=== PATIENT | female | born 1960 | race Caucasian/White ===

== ENCOUNTER 2017-08-18 20:04 | Emergency (ER) | payer MEDICAID ==
[~2017-08-18] VITALS: Ht 160 cm; Wt 76.7 kg
[2017-08-18 20:04] VITALS: BP_SYST 146
--- NOTE | 2017-08-18 20:04 | NUR ---
Patient to ER bed 05 to gown for evaluation. Side rails up. Report given to CORI Johnson
--- NOTE | 2017-08-18 20:06 | NUR ---
Patient AAOx4, ambulatory. Patient states having abdominal pain to LLQ with pain scale 8/10. Patient states having abdominal pain for "several months" but states pain worsened "a few days ago". Patient states pain radiates across lower abdomen to RLQ. Patient states having nausea but denies vomiting and diarrhea. Patient denies any other complaints.
--- NOTE | 2017-08-18 20:19 | NUR ---
EMILY Fall at bedside examining patient.
--- NOTE | 2017-08-18 20:29 | NUR ---
# 22 gauge angiocath placed to right forearm. Use of asceptic technique. Opsite placed over site. Blood return noted. Blood for lab drawn from site. Flushed with 10 cc of normal saline. No evidence of infiltration noted. Patient tolerated well.
[2017-08-18] MEDS ORDERED: NACL 0.9% 1,000 ML IV ONE (20:30)
[2017-08-18] MEDS ORDERED: MORPHINE 4 MG/ML INJ. SYRINGE IVP ONE ×2 (20:30→21:30)
[2017-08-18 20:53] LABS: BASOPHILS # (AUTO) 0.1 K/uL (0.0-0.2); BASOPHILS % (AUTO) 1.8 % (0.0-2.0); EOSINOPHILS # (AUTO) 0.1 K/uL (0.0-0.4); EOSINOPHILS % (AUTO) 2.1 % (0.0-4.0); HEMATOCRIT 37.4 % (36-48); HEMOGLOBIN 12.2 g/dL (12.0-16.0); LYMPHOCYTES # (AUTO) 2.4 K/uL (1.0-5.5); LYMPHOCYTES % (AUTO) 44.2 % (20.5-51.5); MEAN CORPUSCULAR HEMOGLOBIN 27 pg (27-31); MEAN CORPUSCULAR HGB CONC 33 % (32-36); MEAN CORPUSCULAR VOLUME 82 fL (79.0-98.0); MONOCYTES # (AUTO) 0.4 K/uL (0.0-1.0); MONOCYTES % (AUTO) 7.3 % (1.7-9.3); NEUTROPHILS # (AUTO) 2.4 K/uL (1.8-7.7); NEUTROPHILS % (AUTO) 44.6 % (40.0-70.0); PLATELET COUNT (AUTO) 235 K/uL (130-430); RED BLOOD CELL COUNT(AUTO) 4.57 MIL/uL (4.2-6.2); RED CELL DISTRIBUTION WIDTH 13.4 % (9.0-15.0); WHITE BLOOD COUNT (AUTO) 5.4 K/uL (4.8-10.8)
[2017-08-18 21:02] LABS: BILIRUBIN,URINE NEGATIVE (NEGATIVE); BLOOD, URINE NEGATIVE (NEGATIVE); CLARITY/URINE CLEAR (CLEAR); COLOR,URINE YELLOW (YELLOW); GLUCOSE,URINE 1+ (NEGATIVE); KETONES,URINE NEGATIVE (NEGATIVE); LEUKOCYTE ESTERASE ,URINE TRACE (NEGATIVE); NITRITE, URINE NEGATIVE (NEGATIVE); PROTEIN URINE NEGATIVE (NEGATIVE); UROBILINOGEN,URINE 0.2 (0.2-1.0)
[2017-08-18 21:06] LABS: BACTERIA,URINE MODERATE /HPF (None Seen); RBC,URINE 0-3 /HPF (0-3)
[2017-08-18 21:09] LABS: POTASSIUM 4.3 mmol/L (3.5-5.1)
[2017-08-18 21:10] LABS: CREATININE 0.98 mg/dL (0.55-1.30); TOTAL BILIRUBIN 0.3 mg/dL (0.0-1.0)
[2017-08-18 21:11] LABS: ALBUMIN 3.7 g/dL (3.4-4.8)
[2017-08-18] MEDS ORDERED: cefTRIAXone 1 GM IVPB PREMIX 50 ML IV ONE (21:30)
--- NOTE | 2017-08-18 22:04 | NUR ---
Patient is calmly resting in ER bed, no signs of distress noted. Vital signs are within therapeutic range.
[2017-08-18] MEDS ORDERED: LACTULOSE 20 GM/30 ML UDC PO ONE (22:15)
[2017-08-18 22:45] VITALS: BP_SYST 142
--- NOTE | 2017-08-18 22:45 | NUR ---
Patient given written and verbal discharge instructions and verbalizes understanding. ER MD discussed with patient the results and treatment provided. Patient in stable condition. ID arm band removed. IV catheter removed intact and dressing applied, no active bleeding. Rx of macrobid and lactulose given. Patient educated on pain management and to follow up with PMD. Pain Scale 0/10. Opportunity for questions provided and answered. Medication side effect fact sheet provided.
== END 2017-08-18 22:45 | disposition home or self-care (01) ==
LOC: SED 20:04
DX: K59.00 Constipation, unspecified (principal); N39.0 Urinary tract infection, site not specified; M79.7 Fibromyalgia; E11.9 Type 2 diabetes mellitus without complications; I10 Essential (primary) hypertension; Z88.1 Allergy status to other antibiotic agents; Z90.49 Acquired absence of other specified parts of digestive tract; Z90.710 Acquired absence of both cervix and uterus
CPT/HCPCS: 36415; 74176; 80053; 81000; 83605; 85025; 87040; 87086; 96365; 96375; 96376; 99285; J0696; J2270; J7030

== ENCOUNTER 2017-08-21 15:56 | Inpatient (IN) | payer MEDICAID ==
[~2017-08-21] VITALS: Ht 157.5 cm; Wt 75.7 kg
[2017-08-21 16:26] VITALS: BP_SYST 107
[2017-08-21] MEDS ORDERED: KETOROLAC TROMETHAMINE 15 MG VIAL IVP ONE (17:00)
[2017-08-21 17:45] LABS: BASOPHILS # (AUTO) 0.1 K/uL (0.0-0.2); BASOPHILS % (AUTO) 1.8 % (0.0-2.0); EOSINOPHILS # (AUTO) 0.1 K/uL (0.0-0.4); EOSINOPHILS % (AUTO) 0.9 % (0.0-4.0); HEMATOCRIT 39.3 % (36-48); HEMOGLOBIN 12.6 g/dL (12.0-16.0); LYMPHOCYTES # (AUTO) 2.1 K/uL (1.0-5.5); MEAN CORPUSCULAR HEMOGLOBIN 26 pg (27-31); MEAN CORPUSCULAR HGB CONC 32 % (32-36); MEAN CORPUSCULAR VOLUME 82 fL (79.0-98.0); MONOCYTES # (AUTO) 0.4 K/uL (0.0-1.0); MONOCYTES % (AUTO) 6.2 % (1.7-9.3); NEUTROPHILS % (AUTO) 55.1 % (40.0-70.0); PLATELET COUNT (AUTO) 205 K/uL (130-430); RED CELL DISTRIBUTION WIDTH 13.6 % (9.0-15.0); WHITE BLOOD COUNT (AUTO) 5.7 K/uL (4.8-10.8)
[2017-08-21 17:56] LABS: ALBUMIN 3.7 g/dL (3.4-4.8); CALCIUM 9.3 mg/dL (8.4-11.0); CREATININE 1.25 mg/dL (0.55-1.30)
[2017-08-21 18:16] LABS: POTASSIUM 4.1 mmol/L (3.5-5.1)
[2017-08-21 18:18] LABS: BILIRUBIN,URINE NEGATIVE (NEGATIVE); BLOOD, URINE NEGATIVE (NEGATIVE); CLARITY/URINE HAZY (CLEAR); COLOR,URINE YELLOW (YELLOW); GLUCOSE,URINE NEGATIVE (NEGATIVE); KETONES,URINE 1+ (NEGATIVE); LEUKOCYTE ESTERASE ,URINE NEGATIVE (NEGATIVE); NITRITE, URINE NEGATIVE (NEGATIVE); PROTEIN URINE NEGATIVE (NEGATIVE); UROBILINOGEN,URINE 0.2 (0.2-1.0)
[2017-08-21 18:21] LABS: PROTHROMBIN TIME 9.9 SECS (9.5-12.5)
[2017-08-21 18:28] LABS: TOTAL BILIRUBIN 0.5 mg/dL (0.0-1.0)
[2017-08-21] MEDS ORDERED: fentaNYL CITRATE/PF 100 MCG/2 ML AMP IVP ONE (18:30)
[2017-08-21 18:41] LABS: BACTERIA,URINE MODERATE /HPF (None Seen); RBC,URINE 0-3 /HPF (0-3)
[2017-08-21 18:42] LABS: MUCUS,URINE 1+ /LPF (None Seen); OTHER CASTS, URINE WBC CASTS 1+ /LPF (None Seen)
[2017-08-21] MEDS ORDERED: PIPERACILLIN/TAZO 3.375 GM in NS 50 ML IV ONE (18:45)
[2017-08-21] MEDS ORDERED: MORPHINE 2 MG/ML INJ. SYRINGE IVP PRN (19:00)
[2017-08-21] MEDS ORDERED: METOCLOPRAMIDE HCL 10 MG/2 ML VIAL IVP PRN (19:00)
[2017-08-21] MEDS ORDERED: MORPHINE 4 MG/ML INJ. SYRINGE IVP PRN (19:00)
[2017-08-21] MEDS ORDERED: ACETAMINOPHEN 325 MG TABLET PO PRN (19:00)
[2017-08-21] MEDS ORDERED: NACL 0.9% 1,000 ML IV ONE (19:00)
[2017-08-21] MEDS ORDERED: METF1000 PO (19:03)
[2017-08-21] MEDS ORDERED: LIP40 PO (19:03)
[2017-08-21] MEDS ORDERED: MILN50TA PO (19:03)
[2017-08-21] MEDS ORDERED: LYR25 PO (19:03)
[2017-08-21] MEDS ORDERED: AMLO5TAB4 PO (19:03)
[2017-08-21] MEDS ORDERED: LINA5TAB2 PO (19:03)
[2017-08-21] MEDS ORDERED: PRO40 PO (19:03)
[2017-08-21] MEDS ORDERED: TRAZ-126 PO (19:03)
[2017-08-21] MEDS ORDERED: GLIP-195 PO (19:03)
[2017-08-21] MEDS ORDERED: METO50TA7 PO (19:03)
[2017-08-21] MEDS ORDERED: ESTR0.3T3 PO (19:03)
[2017-08-21] MEDS ORDERED: PIPERACILLIN/TAZOBACTAM 3.375 GM/VIAL (ZOSYN) IV ONE (19:11)
[2017-08-21 19:43] VITALS: BP_SYST 147
[2017-08-21] MEDS: ONDANSETRON HCL 4 MG/2 ML VIAL IVP PRN (20:06)
[2017-08-21] MEDS: D5NS 1,000 ML IV SCH (20:14)
[2017-08-21] MEDS: PIPERACILLIN/TAZO 3.375/DEX-IS 50 ML IV SCH (23:13)
[2017-08-22 00:15] VITALS: BP_SYST 121
[2017-08-22] MEDS: fentaNYL CITRATE/PF 100 MCG/2 ML AMP IVP PRN ×4 (00:57→15:33)
[2017-08-22] MEDS: D5NS 1,000 ML IV SCH ×2 (06:13→17:29)
[2017-08-22] MEDS: PIPERACILLIN/TAZO 3.375/DEX-IS 50 ML IV SCH ×3 (06:15→17:30)
[2017-08-22 08:11] VITALS: BP_SYST 109
[2017-08-22] MEDS ORDERED: DEXTROSE 50% JECT 50 ML DISP.SYRIN IVP PRN (10:30)
[2017-08-22] MEDS: INSULIN REGULAR, HUMAN 100 UNITS/ML, 10 ML VIAL (novoLIN R) SUBCUT PRN ×2 (12:09→18:05)
[2017-08-22 12:55] VITALS: BP_SYST 142
[2017-08-22 16:04] VITALS: BP_SYST 136
[2017-08-22 19:50] VITALS: BP_SYST 150
[2017-08-22] MEDS: PREGABALIN 25 MG CAPSULE (LYRICA) PO SCH (21:16)
[2017-08-22] MEDS: HYDROmorphone 2 MG/ML VIAL IVP PRN (21:16)
[2017-08-23] MEDS: PIPERACILLIN/TAZO 3.375/DEX-IS 50 ML IV SCH ×5 (00:02→23:08)
[2017-08-23 00:06] VITALS: BP_SYST 110
[2017-08-23] MEDS: INSULIN REGULAR, HUMAN 100 UNITS/ML, 10 ML VIAL (novoLIN R) SUBCUT PRN ×5 (00:08→23:16)
[2017-08-23] MEDS: DIPHENHYDRAMINE INJ 50 MG/ML VIAL IVP PRN ×3 (01:10→17:11)
[2017-08-23] MEDS: HYDROmorphone 2 MG/ML VIAL IVP PRN ×4 (01:13→23:08)
[2017-08-23] MEDS: D5NS 1,000 ML IV SCH ×3 (01:14→21:15)
[2017-08-23] MEDS: PREGABALIN 25 MG CAPSULE (LYRICA) PO SCH (09:10)
[2017-08-23 09:12] VITALS: BP_SYST 123
[2017-08-23] MEDS ORDERED: DIATR MEGLU/DIATRIZ SOD 30 ML SOLUTION PO ONE (09:20)
[2017-08-23 09:38] LABS: BASOPHILS # (AUTO) 0.1 K/uL (0.0-0.2); BASOPHILS % (AUTO) 1.3 % (0.0-2.0); EOSINOPHILS # (AUTO) 0.1 K/uL (0.0-0.4); HEMATOCRIT 34.6 % (36-48); HEMOGLOBIN 11.5 g/dL (12.0-16.0); LYMPHOCYTES # (AUTO) 1.9 K/uL (1.0-5.5); LYMPHOCYTES % (AUTO) 39.5 % (20.5-51.5); MEAN CORPUSCULAR HEMOGLOBIN 27 pg (27-31); MEAN CORPUSCULAR HGB CONC 33 % (32-36); MEAN CORPUSCULAR VOLUME 81 fL (79.0-98.0); MONOCYTES # (AUTO) 0.4 K/uL (0.0-1.0); MONOCYTES % (AUTO) 8.1 % (1.7-9.3); NEUTROPHILS # (AUTO) 2.4 K/uL (1.8-7.7); NEUTROPHILS % (AUTO) 49.1 % (40.0-70.0); PLATELET COUNT (AUTO) 193 K/uL (130-430); RED BLOOD CELL COUNT(AUTO) 4.27 MIL/uL (4.2-6.2); RED CELL DISTRIBUTION WIDTH 13.5 % (9.0-15.0); WHITE BLOOD COUNT (AUTO) 4.9 K/uL (4.8-10.8)
[2017-08-23] MEDS ORDERED: HYDROmorphone 1 MG INJ. 1 MG/ML AMPUL IVP PRN (10:45)
[2017-08-23 10:46] LABS: CALCIUM 8.3 mg/dL (8.4-11.0); CREATININE 0.84 mg/dL (0.55-1.30); POTASSIUM 4.4 mmol/L (3.5-5.1)
[2017-08-23 10:51] LABS: ALBUMIN 3.1 g/dL (3.4-4.8); TOTAL BILIRUBIN 0.3 mg/dL (0.0-1.0)
[2017-08-23 11:55] VITALS: BP_SYST 119
[2017-08-23] MEDS ORDERED: COMMUNICATION ORDER XX ONE (12:15)
[2017-08-23] MEDS ORDERED: IOHEXOL 100 ML IV ONE (12:15)
[2017-08-23 16:12] VITALS: BP_SYST 114
[2017-08-23] MEDS ORDERED: DIPHENHYDRAMINE INJ 50 MG/ML VIAL IVP ONE (19:45)
[2017-08-23 20:00] VITALS: BP_SYST 139
[2017-08-23] MEDS: LYRICA PO SCH (20:02)
[2017-08-23] MEDS: SAVELLA 50 MG PO SCH (20:02)
[2017-08-24 00:12] VITALS: BP_SYST 133
[2017-08-24] MEDS: D5NS 1,000 ML IV SCH ×2 (05:07→15:55)
[2017-08-24] MEDS: PIPERACILLIN/TAZO 3.375/DEX-IS 50 ML IV SCH ×4 (05:07→23:12)
[2017-08-24 08:00] VITALS: BP_SYST 122
[2017-08-24] MEDS: DIPHENHYDRAMINE INJ 50 MG/ML VIAL IVP PRN ×2 (08:10→21:02)
[2017-08-24] MEDS: HYDROmorphone 2 MG/ML VIAL IVP PRN ×3 (08:13→21:05)
[2017-08-24] MEDS: LYRICA PO SCH ×2 (08:18→20:59)
[2017-08-24] MEDS: SAVELLA 50 MG PO SCH ×2 (08:19→20:58)
[2017-08-24] MEDS: INSULIN REGULAR, HUMAN 100 UNITS/ML, 10 ML VIAL (novoLIN R) SUBCUT PRN ×3 (11:57→23:07)
[2017-08-24 12:37] VITALS: BP_SYST 118
[2017-08-24] MEDS ORDERED: IPRATROPIUM BROM 0.5 MG/2.5 ML VIAL.NEB (ATROVENT) INH PRN (15:15)
[2017-08-24] MEDS ORDERED: ALBUTEROL SULFATE 0.083% 2.5 MG/3 ML VIAL.NEB INH PRN (15:15)
[2017-08-24] MEDS ORDERED: VANCOMYCIN HCL 1,000 MG in NS 250 ML IV SCH (16:00)
[2017-08-24 16:29] VITALS: BP_SYST 146
[2017-08-24 17:19] VITALS: BP_SYST 146
[2017-08-24] MEDS: VANCOMYCIN HCL 250 MG CAPSULE PO SCH ×2 (17:40→20:58)
[2017-08-24] MEDS: IPRATROPIUM BROM 0.5 MG/2.5 ML VIAL.NEB (ATROVENT) INH SCH (19:53)
[2017-08-24] MEDS: ALBUTEROL SULFATE 0.083% 2.5 MG/3 ML VIAL.NEB INH SCH (19:54)
[2017-08-24 20:00] VITALS: BP_SYST 144
[2017-08-25 01:30] VITALS: BP_SYST 130
[2017-08-25] MEDS: PIPERACILLIN/TAZO 3.375/DEX-IS 50 ML IV SCH ×4 (05:05→23:34)
[2017-08-25] MEDS: INSULIN REGULAR, HUMAN 100 UNITS/ML, 10 ML VIAL (novoLIN R) SUBCUT PRN ×3 (05:14→17:23)
[2017-08-25] MEDS: D5NS 1,000 ML IV SCH ×2 (05:19→16:09)
[2017-08-25] MEDS: ALBUTEROL SULFATE 0.083% 2.5 MG/3 ML VIAL.NEB INH SCH ×5 (07:23→23:26)
[2017-08-25] MEDS: IPRATROPIUM BROM 0.5 MG/2.5 ML VIAL.NEB (ATROVENT) INH SCH ×5 (07:23→19:00)
[2017-08-25 08:00] VITALS: BP_SYST 153
[2017-08-25] MEDS: VANCOMYCIN HCL 250 MG CAPSULE PO SCH ×4 (08:24→21:42)
[2017-08-25] MEDS: SAVELLA 50 MG PO SCH ×2 (08:24→21:42)
[2017-08-25] MEDS: LYRICA PO SCH ×2 (08:24→21:00)
[2017-08-25] MEDS: HYDROmorphone 2 MG/ML VIAL IVP PRN ×4 (08:25→23:31)
[2017-08-25] MEDS: DIPHENHYDRAMINE INJ 50 MG/ML VIAL IVP PRN ×3 (08:30→20:57)
[2017-08-25] MEDS: LACTOBACILLUS RHAMNOSUS GG 1 CAP CAPSULE PO SCH ×2 (08:32→21:42)
[2017-08-25] MEDS: CHOLESTYRAMINE/SUCROSE 4 GM/PACKET PO SCH ×3 (08:33→21:43)
[2017-08-25 11:23] LABS: BASOPHILS # (AUTO) 0.1 K/uL (0.0-0.2); BASOPHILS % (AUTO) 1.3 % (0.0-2.0); EOSINOPHILS # (AUTO) 0.1 K/uL (0.0-0.4); EOSINOPHILS % (AUTO) 1.6 % (0.0-4.0); HEMATOCRIT 37.5 % (36-48); HEMOGLOBIN 12.2 g/dL (12.0-16.0); LYMPHOCYTES % (AUTO) 20.7 % (20.5-51.5); MEAN CORPUSCULAR HEMOGLOBIN 27 pg (27-31); MEAN CORPUSCULAR HGB CONC 33 % (32-36); MEAN CORPUSCULAR VOLUME 81 fL (79.0-98.0); MONOCYTES # (AUTO) 0.3 K/uL (0.0-1.0); MONOCYTES % (AUTO) 6.8 % (1.7-9.3); NEUTROPHILS # (AUTO) 3.1 K/uL (1.8-7.7); NEUTROPHILS % (AUTO) 69.6 % (40.0-70.0); PLATELET COUNT (AUTO) 181 K/uL (130-430); RED CELL DISTRIBUTION WIDTH 13.6 % (9.0-15.0); WHITE BLOOD COUNT (AUTO) 4.6 K/uL (4.8-10.8)
[2017-08-25 11:30] LABS: CALCIUM 8.6 mg/dL (8.4-11.0); CREATININE 0.76 mg/dL (0.55-1.30); POTASSIUM 3.5 mmol/L (3.5-5.1)
[2017-08-25 11:35] LABS: ALBUMIN 3.2 g/dL (3.4-4.8); TOTAL BILIRUBIN 0.3 mg/dL (0.0-1.0)
[2017-08-25 12:39] VITALS: BP_SYST 126
[2017-08-25 16:30] VITALS: BP_SYST 127
[2017-08-25] MEDS ORDERED: fentaNYL 50 MCG/HR PATCH TD SCH (17:00)
[2017-08-25 20:00] VITALS: BP_SYST 129
[2017-08-25 23:30] VITALS: BP_SYST 143
[2017-08-26 04:00] VITALS: BP_SYST 130
[2017-08-26] MEDS: HYDROmorphone 2 MG/ML VIAL IVP PRN (04:16)
[2017-08-26] MEDS: D5NS 1,000 ML IV SCH ×2 (04:27→16:04)
[2017-08-26] MEDS: ALBUTEROL SULFATE 0.083% 2.5 MG/3 ML VIAL.NEB INH SCH ×6 (04:28→23:00)
[2017-08-26] MEDS: IPRATROPIUM BROM 0.5 MG/2.5 ML VIAL.NEB (ATROVENT) INH SCH ×7 (04:28→23:00)
[2017-08-26] MEDS: PIPERACILLIN/TAZO 3.375/DEX-IS 50 ML IV SCH ×4 (06:18→23:44)
[2017-08-26] MEDS: INSULIN REGULAR, HUMAN 100 UNITS/ML, 10 ML VIAL (novoLIN R) SUBCUT PRN ×4 (06:25→23:49)
[2017-08-26] MEDS: DIPHENHYDRAMINE INJ 50 MG/ML VIAL IVP PRN (06:31)
[2017-08-26 08:00] VITALS: BP_SYST 149
[2017-08-26] MEDS: LACTOBACILLUS RHAMNOSUS GG 1 CAP CAPSULE PO SCH ×2 (08:54→21:34)
[2017-08-26] MEDS: VANCOMYCIN HCL 250 MG CAPSULE PO SCH ×4 (08:54→21:33)
[2017-08-26] MEDS: CHOLESTYRAMINE/SUCROSE 4 GM/PACKET PO SCH (08:54)
[2017-08-26] MEDS: SAVELLA 50 MG PO SCH ×2 (08:55→21:34)
[2017-08-26] MEDS: LYRICA PO SCH ×2 (08:58→21:00)
[2017-08-26] MEDS ORDERED: PANTOPRAZOLE SODIUM 40 MG TAB PO ONE (09:45)
[2017-08-26] MEDS ORDERED: glipiZIDE XL 5 MG TAB ( GLUCOTROL XL) PO ONE (09:45)
[2017-08-26] MEDS ORDERED: PREGABALIN 25 MG CAPSULE (LYRICA) PO ONE (09:45)
[2017-08-26] MEDS ORDERED: amLODIPine BESYLATE 5 MG TABLET PO ONE (09:45)
[2017-08-26] MEDS ORDERED: METOPROLOL SUCCINATE 50 MG TAB.SR.24H (TOPROL XL) PO ONE (09:45)
[2017-08-26] MEDS ORDERED: ATORVASTATIN 20 MG TABLET PO ONE (09:45)
[2017-08-26] MEDS: ONDANSETRON HCL 4 MG/2 ML VIAL IVP PRN (11:31)
[2017-08-26 12:50] VITALS: BP_SYST 149
[2017-08-26 16:51] VITALS: BP_SYST 128
[2017-08-26 19:20] VITALS: BP_SYST 130
[2017-08-26] MEDS: PREGABALIN 25 MG CAPSULE (LYRICA) PO SCH (21:33)
[2017-08-26] MEDS: glipiZIDE XL 5 MG TAB ( GLUCOTROL XL) PO SCH (21:33)
[2017-08-27 00:23] VITALS: BP_SYST 122
[2017-08-27] MEDS: D5NS 1,000 ML IV SCH ×4 (02:26→23:19)
[2017-08-27] MEDS: PIPERACILLIN/TAZO 3.375/DEX-IS 50 ML IV SCH ×4 (05:19→23:19)
[2017-08-27] MEDS: IPRATROPIUM BROM 0.5 MG/2.5 ML VIAL.NEB (ATROVENT) INH SCH ×5 (07:00→23:00)
[2017-08-27 07:28] LABS: ALBUMIN 2.8 g/dL (3.4-4.8); CALCIUM 8.4 mg/dL (8.4-11.0); CREATININE 0.8 mg/dL (0.55-1.30); POTASSIUM 3.4 mmol/L (3.5-5.1); TOTAL BILIRUBIN 0.5 mg/dL (0.0-1.0)
[2017-08-27 07:40] VITALS: BP_SYST 136
[2017-08-27] MEDS: ALBUTEROL SULFATE 0.083% 2.5 MG/3 ML VIAL.NEB INH SCH ×5 (07:43→23:00)
[2017-08-27 08:00] VITALS: BP_SYST 136
[2017-08-27 08:21] LABS: BASOPHILS % (AUTO) 0.3 % (0.0-2.0); EOSINOPHILS # (AUTO) 0.2 K/uL (0.0-0.4); EOSINOPHILS % (AUTO) 5.1 % (0.0-4.0); HEMATOCRIT 35.5 % (36-48); HEMOGLOBIN 11.7 g/dL (12.0-16.0); LYMPHOCYTES # (AUTO) 1.5 K/uL (1.0-5.5); LYMPHOCYTES % (AUTO) 34.2 % (20.5-51.5); MEAN CORPUSCULAR HEMOGLOBIN 27 pg (27-31); MEAN CORPUSCULAR HGB CONC 33 % (32-36); MEAN CORPUSCULAR VOLUME 81 fL (79.0-98.0); MONOCYTES # (AUTO) 0.4 K/uL (0.0-1.0); MONOCYTES % (AUTO) 9.6 % (1.7-9.3); NEUTROPHILS # (AUTO) 2.4 K/uL (1.8-7.7); NEUTROPHILS % (AUTO) 50.8 % (40.0-70.0); PLATELET COUNT (AUTO) 180 K/uL (130-430); RED BLOOD CELL COUNT(AUTO) 4.38 MIL/uL (4.2-6.2); RED CELL DISTRIBUTION WIDTH 13.4 % (9.0-15.0); WHITE BLOOD COUNT (AUTO) 4.5 K/uL (4.8-10.8)
[2017-08-27] MEDS: glipiZIDE XL 5 MG TAB ( GLUCOTROL XL) PO SCH ×2 (08:45→20:54)
[2017-08-27] MEDS: amLODIPine BESYLATE 5 MG TABLET PO SCH (08:46)
[2017-08-27] MEDS: PANTOPRAZOLE SODIUM 40 MG TAB PO SCH (08:46)
[2017-08-27] MEDS: VANCOMYCIN HCL 250 MG CAPSULE PO SCH ×4 (08:46→20:53)
[2017-08-27] MEDS: LACTOBACILLUS RHAMNOSUS GG 1 CAP CAPSULE PO SCH ×2 (08:47→20:53)
[2017-08-27] MEDS: PREGABALIN 25 MG CAPSULE (LYRICA) PO SCH ×2 (08:47→20:54)
[2017-08-27] MEDS: ATORVASTATIN 20 MG TABLET PO SCH (08:47)
[2017-08-27] MEDS: METOPROLOL SUCCINATE 50 MG TAB.SR.24H (TOPROL XL) PO SCH (08:47)
[2017-08-27] MEDS: SAVELLA 50 MG PO SCH ×2 (08:48→20:54)
[2017-08-27] MEDS: LYRICA PO SCH ×2 (08:51→20:54)
[2017-08-27] MEDS ORDERED: METOCLOPRAMIDE HCL 10 MG TABLET PO ONE (09:00)
[2017-08-27] MEDS: KCL 40 mEq in 100 mL (PREMIX) 100 ML IV ONE ×2 (10:52→11:30)
[2017-08-27] MEDS ORDERED: SUCRALFATE 1 GM TABLET PO ONE (11:15)
[2017-08-27] MEDS ORDERED: POTASSIUM CHLORIDE 20 MEQ TAB.PRT.SR PO ONE (12:00)
[2017-08-27] MEDS: LIPASE/PROTEASE/AMYLASE 1 CAP PO SCH ×2 (12:13→17:54)
[2017-08-27] MEDS: INSULIN REGULAR, HUMAN 100 UNITS/ML, 10 ML VIAL (novoLIN R) SUBCUT PRN ×3 (12:17→23:24)
[2017-08-27 12:38] VITALS: BP_SYST 134
[2017-08-27] MEDS: SUCRALFATE 1 GM TABLET PO SCH ×2 (15:00→20:53)
[2017-08-27 16:35] VITALS: BP_SYST 143
[2017-08-27] MEDS: HYDROmorphone 2 MG/ML VIAL IVP PRN (18:51)
[2017-08-27] MEDS: DIPHENHYDRAMINE INJ 50 MG/ML VIAL IVP PRN (18:51)
[2017-08-27 20:00] VITALS: BP_SYST 113
[2017-08-27] MEDS: traZODone HCL 50 MG TABLET (DESYREL) PO SCH (20:53)
[2017-08-28 00:48] VITALS: BP_SYST 89
[2017-08-28] MEDS: IPRATROPIUM BROM 0.5 MG/2.5 ML VIAL.NEB (ATROVENT) INH SCH ×3 (03:00→11:00)
[2017-08-28] MEDS: ALBUTEROL SULFATE 0.083% 2.5 MG/3 ML VIAL.NEB INH SCH ×6 (03:00→23:00)
[2017-08-28 04:13] VITALS: BP_SYST 103
[2017-08-28] MEDS: PIPERACILLIN/TAZO 3.375/DEX-IS 50 ML IV SCH (05:08)
[2017-08-28 07:02] LABS: ALBUMIN 2.6 g/dL (3.4-4.8); CALCIUM 8.1 mg/dL (8.4-11.0); CREATININE 0.92 mg/dL (0.55-1.30); TOTAL BILIRUBIN 0.4 mg/dL (0.0-1.0)
[2017-08-28 08:00] VITALS: BP_SYST 118
[2017-08-28] MEDS: LIPASE/PROTEASE/AMYLASE 1 CAP PO SCH ×3 (08:04→17:52)
[2017-08-28] MEDS: SUCRALFATE 1 GM TABLET PO SCH ×3 (08:04→21:29)
[2017-08-28] MEDS: METOPROLOL SUCCINATE 50 MG TAB.SR.24H (TOPROL XL) PO SCH (08:05)
[2017-08-28] MEDS: amLODIPine BESYLATE 5 MG TABLET PO SCH (08:05)
[2017-08-28] MEDS: LACTOBACILLUS RHAMNOSUS GG 1 CAP CAPSULE PO SCH ×2 (08:05→21:29)
[2017-08-28] MEDS: ATORVASTATIN 20 MG TABLET PO SCH (08:05)
[2017-08-28] MEDS: PREGABALIN 25 MG CAPSULE (LYRICA) PO SCH ×2 (08:05→21:29)
[2017-08-28] MEDS: SAVELLA 50 MG PO SCH ×2 (08:06→21:30)
[2017-08-28] MEDS: PANTOPRAZOLE SODIUM 40 MG TAB PO SCH (08:06)
[2017-08-28] MEDS: VANCOMYCIN HCL 250 MG CAPSULE PO SCH ×4 (08:06→21:29)
[2017-08-28] MEDS: glipiZIDE XL 5 MG TAB ( GLUCOTROL XL) PO SCH ×2 (08:06→21:29)
[2017-08-28] MEDS: LYRICA PO SCH ×2 (08:08→21:00)
[2017-08-28] MEDS ORDERED: POTASSIUM CHLORIDE 20 MEQ TAB.PRT.SR PO ONE ×2 (10:15→14:15)
[2017-08-28] MEDS: D5NS 1,000 ML IV SCH ×2 (10:57→21:29)
[2017-08-28 12:00] VITALS: BP_SYST 139
[2017-08-28] MEDS: INSULIN REGULAR, HUMAN 100 UNITS/ML, 10 ML VIAL (novoLIN R) SUBCUT PRN ×2 (12:36→17:59)
[2017-08-28 18:51] VITALS: BP_SYST 126
[2017-08-28 20:15] VITALS: BP_SYST 137
[2017-08-28] MEDS ORDERED: MORPHINE 2 MG/ML INJ. SYRINGE IVP PRN (21:00)
[2017-08-28] MEDS ORDERED: MORPHINE 4 MG/ML INJ. SYRINGE IVP PRN (21:00)
[2017-08-28] MEDS ORDERED: ACETAMINOPHEN 325 MG TABLET PO PRN (21:00)
[2017-08-28] MEDS: traZODone HCL 50 MG TABLET (DESYREL) PO SCH (21:29)
[2017-08-29] MEDS: INSULIN REGULAR, HUMAN 100 UNITS/ML, 10 ML VIAL (novoLIN R) SUBCUT PRN ×2 (00:24→12:31)
[2017-08-29] MEDS: DIPHENHYDRAMINE INJ 50 MG/ML VIAL IVP PRN (00:27)
[2017-08-29 00:33] VITALS: BP_SYST 130
[2017-08-29] MEDS: D5NS 1,000 ML IV SCH (07:31)
[2017-08-29] MEDS: ALBUTEROL SULFATE 0.083% 2.5 MG/3 ML VIAL.NEB INH SCH ×2 (07:50→11:00)
[2017-08-29 08:00] VITALS: BP_SYST 119
[2017-08-29] MEDS: LYRICA PO SCH (09:00)
[2017-08-29] MEDS: LACTOBACILLUS RHAMNOSUS GG 1 CAP CAPSULE PO SCH (09:01)
[2017-08-29] MEDS: PANTOPRAZOLE SODIUM 40 MG TAB PO SCH (09:01)
[2017-08-29] MEDS: METOPROLOL SUCCINATE 50 MG TAB.SR.24H (TOPROL XL) PO SCH (09:01)
[2017-08-29] MEDS: VANCOMYCIN HCL 250 MG CAPSULE PO SCH ×2 (09:01→12:29)
[2017-08-29] MEDS: PREGABALIN 25 MG CAPSULE (LYRICA) PO SCH (09:02)
[2017-08-29] MEDS: SUCRALFATE 1 GM TABLET PO SCH (09:02)
[2017-08-29] MEDS: glipiZIDE XL 5 MG TAB ( GLUCOTROL XL) PO SCH (09:02)
[2017-08-29] MEDS: amLODIPine BESYLATE 5 MG TABLET PO SCH (09:02)
[2017-08-29] MEDS: ATORVASTATIN 20 MG TABLET PO SCH (09:02)
[2017-08-29] MEDS: SAVELLA 50 MG PO SCH (09:03)
[2017-08-29] MEDS: LIPASE/PROTEASE/AMYLASE 1 CAP PO SCH ×2 (10:35→12:29)
[2017-08-29 11:27] VITALS: BP_SYST 130
[2017-08-29 13:26] VITALS: BP_SYST 115
[2017-08-29] MEDS ORDERED: LEVO500T20 PO (13:55)
[2017-08-29] MEDS ORDERED: METR500T PO (13:56)
[2017-08-29] MEDS ORDERED: AMYL1CAP54 PO (13:57)
== END 2017-08-29 14:10 | disposition home or self-care (01) | DRG 244 ==
LOC: SED 15:56 → SMU 18:59
PROVIDERS: ADMIT Internal Medicine Hospice and Palliative Medicine; ATTEND Internal Medicine Hospice and Palliative Medicine
DX: K57.32 Diverticulitis of large intestine without perforation or abscess without bleeding (principal); E11.40 Type 2 diabetes mellitus with diabetic neuropathy, unspecified; A04.72 Enterocolitis due to Clostridium difficile, not specified as recurrent; E11.65 Type 2 diabetes mellitus with hyperglycemia; M79.7 Fibromyalgia; I10 Essential (primary) hypertension; M19.90 Unspecified osteoarthritis, unspecified site; Z87.440 Personal history of urinary (tract) infections; Z88.1 Allergy status to other antibiotic agents; Z88.6 Allergy status to analgesic agent
CPT/HCPCS: 36415; 74018; 80053; 81000-TC; 82962; 83605; 83690-TC; 84484; 85025; 85610-TC; 85730-TC; 87040-TC; 87045-TC; 87046; 87086; 87177; 87230-TC; 89055; 93005; 94640; 94760; 96365; 96375; 99285; J1170; J1200; J1815; J1885; J2270; J2405; J2543; J3010; J3370; J3480; J7030; J7042; J7050; J7613; J8597; Q9964; Q9967

== ENCOUNTER 2018-05-10 21:56 | Emergency (ER) | payer MEDICAID ==
[~2018-05-10] VITALS: Ht 157.5 cm; Wt 74.8 kg
[~2018-05-10 21:56] MED LIST: AMLO5TAB4 PO; AMYL1CAP54 PO; ESTR0.3T3 PO; GLIP5TAB26 PO; LEVO500T20 PO; LINA5TAB2 PO; LIP40 PO; LYR25 PO; METF1000 PO; METO50TA7 PO; METR500T PO; MILN50TA PO; PRO40 PO; TRAZ-219 PO
[2018-05-10 23:00] VITALS: BP_SYST 136
[2018-05-11] MEDS ORDERED: NACL 0.9% 1,000 ML IV ONE (00:44)
--- NOTE | 2018-05-11 01:00 | NUR ---
Patient to ER bed h1 to gown for evaluation. Side rails up.
--- NOTE | 2018-05-11 01:20 | NUR ---
ER at bedside examining patient.
[2018-05-11 01:28] LABS: CALCIUM 9.1 mg/dL (8.4-11.0); CREATININE 0.93 mg/dL (0.55-1.30); POTASSIUM 3.7 mmol/L (3.5-5.1)
[2018-05-11 01:30] LABS: PROTHROMBIN TIME 10.3 SECS (9.5-12.5)
--- NOTE | 2018-05-11 01:30 | NUR ---
Pt came to the ED for ABD pain located in the RLQ. Pain started at 5/10 and has increased to 8/10. Denies n/v/d or fever. Denies pain or urgency with urination. Denies pain or any other complaints/injuries.
[2018-05-11 01:33] LABS: HEMATOCRIT 39.3 % (36-48); HEMOGLOBIN 12.7 g/dL (12.0-16.0); LYMPHOCYTES % (AUTO) 49.6 % (20.5-51.5); MEAN CORPUSCULAR HEMOGLOBIN 27 pg (27-31); MEAN CORPUSCULAR HGB CONC 32 % (32-36); MEAN CORPUSCULAR VOLUME 83 fL (79.0-98.0); NEUTROPHILS % (AUTO) 38.4 % (40.0-70.0); PLATELET COUNT (AUTO) 220 K/uL (130-430); RED BLOOD CELL COUNT(AUTO) 4.76 MIL/uL (4.2-6.2); RED CELL DISTRIBUTION WIDTH 13.9 % (9.0-15.0); WHITE BLOOD COUNT (AUTO) 5.5 K/uL (4.8-10.8)
[2018-05-11 01:34] LABS: ALBUMIN 3.5 g/dL (3.4-4.8); BASOPHILS % (AUTO) 0.5 % (0.0-2.0); EOSINOPHILS # (AUTO) 0.1 K/uL (0.0-0.4); EOSINOPHILS % (AUTO) 2.2 % (0.0-4.0); LYMPHOCYTES # (AUTO) 2.7 K/uL (1.0-5.5); MONOCYTES # (AUTO) 0.5 K/uL (0.0-1.0); MONOCYTES % (AUTO) 9.3 % (1.7-9.3); NEUTROPHILS # (AUTO) 2.1 K/uL (1.8-7.7); TOTAL BILIRUBIN 0.4 mg/dL (0.0-1.0)
[2018-05-11] MEDS ORDERED: KETOROLAC TROMETHAMINE 30 MG VIAL IVP ONE (02:15)
--- NOTE | 2018-05-11 02:30 | NUR ---
Per pt, she states, "I had a hysterectomy." ER MD made aware before Toradol administration.
[2018-05-11 03:23] LABS: BILIRUBIN,URINE NEGATIVE (NEGATIVE); BLOOD, URINE NEGATIVE (NEGATIVE); CLARITY/URINE CLEAR (CLEAR); COLOR,URINE YELLOW (YELLOW); GLUCOSE,URINE TRACE (NEGATIVE); KETONES,URINE NEGATIVE (NEGATIVE); LEUKOCYTE ESTERASE ,URINE 1+ (NEGATIVE); NITRITE, URINE NEGATIVE (NEGATIVE); PROTEIN URINE NEGATIVE (NEGATIVE); UROBILINOGEN,URINE 0.2 (0.2-1.0)
[2018-05-11 03:30] LABS: BACTERIA,URINE FEW /HPF (None Seen); RBC,URINE 0-3 /HPF (0-3)
--- NOTE | 2018-05-11 03:30 | NUR ---
Pt placed to ER bed 7.
--- NOTE | 2018-05-11 03:30 | NUR ---
Pt placed in ER bed 7.
--- NOTE | 2018-05-11 03:30 | NUR ---
Juanita richardson in ED - 05/11/18 at 0557 by [email or web address] Pt placed to ER bed 7.
--- NOTE | 2018-05-11 04:00 | NUR ---
Pt resting comfortably in bed. No signs of distress. Will cont. to monitor.
[2018-05-11] MEDS ORDERED: cefTRIAXone 1 GM IVPB PREMIX 50 ML IV ONE (04:30)
--- NOTE | 2018-05-11 05:00 | NUR ---
Pt resting comfortably in bed. No signs of distress. Will cont. to monitor.
--- NOTE | 2018-05-11 06:00 | NUR ---
Pt resting comfortably in bed. No signs of distress. Will cont. to monitor.
[2018-05-11 07:15] VITALS: BP_SYST 136
--- NOTE | 2018-05-11 07:15 | NUR ---
Note undone in EDM - 05/11/18 at 0719 by [email or web address] Patient given written and verbal discharge instructions and verbalizes understanding. ER MD Dr. Shaffer discussed with patient the results and treatment provided. Patient in stable condition. ID arm band removed. IV catheter removed intact and dressing applied, no active bleeding. Rx of protonix and keflex given. Patient educated on pain manaesgement and to follow up with PMD within 2-3 days. Pain Scale 2/10, however, pt has otc pain medication at home. pt able to ambulate with steady gait, no other complaints/injuries noted. Opportunity for questions provided and answered. Medication side effect fact sheet provided.
== END 2018-05-11 07:15 | disposition home or self-care (01) ==
LOC: SED 21:56
DX: K29.70 Gastritis, unspecified, without bleeding (principal); E11.9 Type 2 diabetes mellitus without complications; I10 Essential (primary) hypertension; M79.7 Fibromyalgia; M19.90 Unspecified osteoarthritis, unspecified site; Z88.1 Allergy status to other antibiotic agents; Z88.6 Allergy status to analgesic agent; Z88.8 Allergy status to other drugs, medicaments and biological substances; Z79.84 Long term (current) use of oral hypoglycemic drugs; Z79.899 Other long term (current) drug therapy
CPT/HCPCS: 36415; 74176; 80053; 81000; 83690; 82150; 85025; 85610; 87040; 96361; 96365; 96375; 99284; J0696; J1885; J7030